=== PATIENT | male | born 2000 | race Hispanic/Latino ===

== ENCOUNTER 2023-01-18 20:07 | Emergency (ER) | payer OTHER | END 2023-01-18 21:20 | disposition home or self-care (01) | LOC: CSHERS 20:07 | DX: J02.9 Acute pharyngitis, unspecified (principal) | CPT/HCPCS: 87081; 87430; 99283 ==

== ENCOUNTER 2024-09-07 13:36 | Emergency (ER) | payer OTHER, SELFPAY | END 2024-09-07 15:55 | disposition home or self-care (01) | LOC: CSHERS 13:36 | DX: L02.412 Cutaneous abscess of left axilla (principal) | CPT/HCPCS: 10060 ==

== ENCOUNTER 2024-09-10 12:08 | Emergency (ER) | payer SELFPAY | END 2024-09-10 12:53 | disposition home or self-care (01) | LOC: CSHERS 12:08 | DX: Z48.817 Encounter for surgical aftercare following surgery on the skin and subcutaneous tissue (principal) | CPT/HCPCS: 99282 ==